=== PATIENT | male | born 1965 | race Caucasian/White ===

== ENCOUNTER 2016-11-29 01:09 | Emergency (ER) | payer OTHER, BC ==
[~2016-11-29] VITALS: Ht 185.4 cm; Wt 88.6 kg
[~2016-11-29 01:09] MED LIST: AMOXICILLIN/CL875 MG OR; AUGMENTIN875 MG PO; AUGMENTIN875TAB OR; CLARITHROMYC500 MG PO; MEDDOSEPAK OR; NO; ZITHROMAX250 MG PO
[2016-11-29 01:34] LABS: HEMATOCRIT 48.7 % (39.0-50.0); HEMOGLOBIN 16.6 g/dl (14.0-18.0); IMMATURE GRANULOCYTES 0.4 % (0.0-1.0); MEAN CELL VOLUME 92.9 fL CALC (80.0-100.0); MEAN CORPUSCULAR HGB 31.7 pG CALC (26.0-32.0); MEAN CORPUSCULAR HGB CONC 34.1 g/L CALC (32.0-36.0); NEUT# 4.96 thou/uL (1.82-7.42); RED BLOOD COUNT 5.24 mill/uL (4.70-6.10); RED CELL DISTRI WIDTH 12.4 % (11.5-15.5)
[2016-11-29 01:44] LABS: ALBUMIN 4.9 g/dL (3.2-5.0); ALKALINE PHOSPHATASE 71 u/l (38-126); ANION GAP 18 (6-22 (CALC)); BILIRUBIN, TOTAL 0.7 mg/dL (0.0-1.4); BUN 17 mg/dL (9-20); BUN/CREATININE RATIO 19 (12-20 (CALC)); CALCIUM 9.9 mg/dL (8.4-10.2); CARBON DIOXIDE 27 mmol/l (22-30); CHLORIDE 103 mmol/l (95-108); CREATININE 0.9 mg/dL (0.7-1.3); GFR > 60 ML/MIN (>=60 (CALC)); GFR FOR AFR.AMER. > 60 ML/MIN (>=60 (CALC)); GLUCOSE 88 mg/dL (75-110); POTASSIUM 4.1 mmol/l (3.5-5.1); SGOT/AST 23 u/l (17-59); SGPT/ALT 30 u/l (21-72); SODIUM 144 mmol/l (137-146); TOTAL PROTEIN 8.3 g/dL (6.3-8.2)
[2016-11-29 01:56] LABS: MYOGLOBIN 31 ng/mL (0 - 121)
[2016-11-29 02:08] LABS: ACT PARTIAL THROMBO TIME 27.5 SECONDS (20.0-32.5); PROTHROMBIN TIME 10.4 SECONDS (9.0-12.5)
[2016-11-29] MEDS ORDERED: LISINOPRIL5 MG PO (02:18)
[2016-11-29] MEDS ORDERED: METFORMIN500 MG PO (02:19)
[2016-11-29] MEDS ORDERED: MELOXICAM7.5 MG PO (02:20)
[2016-11-29 02:24] VITALS: BP 126/70
== END 2016-11-29 02:23 | disposition short-term general hospital (02) | DRG 311 ==
LOC: ED 01:09
PROVIDERS: Emergency Medicine
DX: I20.0 Unstable angina (principal); I10 Essential (primary) hypertension; E11.9 Type 2 diabetes mellitus without complications; F17.210 Nicotine dependence, cigarettes, uncomplicated